=== PATIENT | female | born 1960 | race American Indian/Alaskan Native ===

== ENCOUNTER 2017-04-25 09:00 | Outpatient (CLI) | payer MEDICARE ==
--- NOTE | 2017-04-25 09:28 | XRay Report ---
LEFT ANKLE RADIOGRAPHS INDICATION: Pain, swelling. COMPARISON: None similar. FINDINGS: AP, lateral and oblique left ankle radiographs suggest mild soft tissue swelling overlying the medial malleolus. An underlying 6 mm ossific density projects below the medial malleolus on one of the views and appears corticated, presumed old degenerative or posttraumatic. Intact mortise, lateral malleolus and talar dome contour. Small dorsal and plantar spurs. CONCLUSION: Mild left ankle medial soft tissue swelling not excluded with few degenerative changes, as described. Directed clinical correlation also suggested. Thank you for the opportunity to participate in this patient's care.
== END 2017-04-25 09:01 | disposition home or self-care (01) ==
LOC: XRAY 09:00
PROVIDERS: ATTEND Internal Medicine Hematology & Oncology
DX: M19.072 Primary osteoarthritis, left ankle and foot (principal)

== ENCOUNTER 2017-06-17 14:25 | Outpatient (CLI) | payer MEDICARE ==
--- NOTE | 2017-06-17 15:17 | XRay Report ---
CHEST 2 VIEWS INDICATION: Cough. COMPARISON: 02/26/2013 FINDINGS: PA and lateral chest radiographs demonstrate normal cardiomediastinal silhouette. Mild peribronchial thickening and slightly prominent lung markings, more so centrally and somewhat more pronounced since the prior exam. No pleural effusions or CHF. Intact bones. CONCLUSION: No acute chest process with slight nonspecific prominence of lung markings, possibly chronic, as described. Please correlate. Thank you for the opportunity to participate in this patient's care.
--- NOTE | 2017-06-17 15:50 | Mammography Report ---
BILATERAL MAMMOGRAM with CAD: HISTORY:Cancer screening. Comparison study is dated June. FINDINGS: The breasts are almost entirely fat (<25% glandular). No mass, distortion, suspicious calcification, or skin change is seen. IMPRESSION: Negative mammogram. There is no mammographic evidence of malignancy. RECOMMENDATION: Follow-up per ACS guidelines. BI-RADS CATEGORY: 1 = Negative ACR BI-RADS MAMMOGRAPHIC CODES: 0 = Needs additional imaging evaluation; 1 = Negative; 2 = Benign; 3 = Probably benign; 4 = Suspicious; 5 = Malignant; 6 = Known biopsy-proven malignancy COMMENT: 1. Dense breast tissue, i.e., adenosis, fibrocystic changes, etc., may obscure an underlying neoplasm. 2. Approximately 10% of cancers are not detected with mammography. 3. A negative mammography report should not delay biopsy if a clinically suspicious mass is present. COMMENT: Patient follow-up letters are generated in [facility].
== END 2017-06-17 14:26 | disposition home or self-care (01) ==
LOC: MAMMO 14:25
PROVIDERS: ATTEND Internal Medicine Hematology & Oncology
DX: Z12.31 Encounter for screening mammogram for malignant neoplasm of breast (principal); R91.8 Other nonspecific abnormal finding of lung field; R05 Cough
CPT/HCPCS: 71020; G0202; 77067

== ENCOUNTER 2018-12-15 07:18 | Outpatient (CLI) | payer MEDICARE ==
--- NOTE | 2018-12-15 08:55 | Mammography Report ---
Bilateral mammogram: Compared to 06/17/17. CAD study utilized. Findings: Predominance adipose tissue bilaterally. No mass or microcalcification. Benign axilla. Impression: Benign findings. Annual followup recommended. BI-RADS CATEGORY: 2 = Benign ACR BI-RADS MAMMOGRAPHIC CODES: 0 = Needs additional imaging evaluation; 1 = Negative; 2 = Benign; 3 = Probably benign; 4 = Suspicious; 5 = Malignant; 6 = Known biopsy-proven malignancy COMMENT: 1. Dense breast tissue, i.e., adenosis, fibrocystic changes, etc., may obscure an underlying neoplasm. 2. Approximately 10% of cancers are not detected with mammography. 3. A negative mammography report should not delay biopsy if a clinically suspicious mass is present.
== END 2018-12-15 07:19 | disposition home or self-care (01) ==
LOC: MAMMO 07:18
PROVIDERS: ATTEND Internal Medicine Hematology & Oncology
DX: Z12.31 Encounter for screening mammogram for malignant neoplasm of breast (principal)
CPT/HCPCS: 77067

== ENCOUNTER 2021-04-26 07:42 | Outpatient (CLI) | payer MEDICARE ==
--- NOTE | 2021-04-26 11:34 | XRay Report ---
CHEST 2 VIEWS INDICATION: Cough. COMPARISON: 06/17/2017 FINDINGS: Support devices: None. Heart: Within normal limits. Lungs/pleura: No acute air space or interstitial disease. No pneumothorax. Additional findings: None. IMPRESSION: No acute findings. LEFT RIBS 3 VIEWS INDICATION: LEFT RIB PAIN. COMPARISON: None. IMPRESSION: No left rib lesion or displaced fracture is detected on chest x-ray. The left lung is we ll-aerated. The soft tissues are unremarkable. Signer Name: Ezra España Jr, MD Signed: 04/26/2021 11:30 AM Workstation Name: [id number]
--- NOTE | 2021-04-26 12:57 | Mammography Report ---
DIGITAL SCREENING MAMMOGRAM WITH CAD, 04/26/2021 CLINICAL INFORMATION / INDICATION: Routine screening mammography. SCREENING MAMMOGRAM TECHNIQUE: Digital bilateral 2D mammography was obtained in the craniocaudal and mediolateral obliqu e projections. This examination was interpreted with the benefit of Computer-Aided Detection analysis . COMPARISON: 06/16/2015 through 04/25/2020. FINDINGS: Breast Density: The breasts are almost entirely fatty. No dominant mass, suspicious calcifications, or architectural distortion in either breast. IMPRESSION: No mammographic evidence of malignancy. Follow up recommendation: Routine yearly BI-RADS Category 1: Negative. A "normal" or negative report should not discourage follow up or biopsy of a clinically significant f inding. A written summary of these findings will be mailed to the patient. The patient will be entered into a mammography reporting system which will generate a reminder letter for the patient's next appointmen t at the appropriate interval. The [employer] recommends yearly mammograms starting at age 40 and continuing as l kaiser as a woman is in good health. Breast MRI is recommended for women with an approximate 20-25% or greater lifetime risk of breast cancer, including women with a strong family history of breast or ova alphonse cancer or who have been treated for Hodgkin's disease. Signer Name: Jose Ramon Acosta MD Signed: 04/26/2021 12:53 PM Workstation Name: [id number]
== END 2021-04-26 07:43 | disposition home or self-care (01) ==
LOC: MAMMO 07:42
PROVIDERS: ATTEND Internal Medicine Hematology & Oncology
DX: Z12.31 Encounter for screening mammogram for malignant neoplasm of breast (principal); R05 Cough; R07.81 Pleurodynia
CPT/HCPCS: 71046; 77067